=== PATIENT | female | born 1995 | race Caucasian/White ===

== ENCOUNTER 2023-04-10 10:20 | Inpatient (IN) ==
[2023-04-10] MEDS ORDERED: LIDOCAINE 1% LOCAL 20 ML VIAL INFIL PRN (22:29)
[2023-04-10] MEDS ORDERED: PENICILLIN G POTASSIUM 6 MU in DEXTROSE 5% 250 ML IV STA (22:29)
[2023-04-10] MEDS ORDERED: DINOPROSTONE 10 MG INSERT PV ONE (22:29)
[2023-04-10] MEDS ORDERED: OXYTOCIN 30 UNITS/500 ML BAG IV PRN (22:29)
--- NOTE | 2023-04-10 22:48 | History & Physical Report ---
Date of Service April 10, 2023 Assessment & Plan (1) Encounter for induction of labor: Present on Admission?: Yes (2) Hypertriglyceridemia: Present on Admission?: Yes (3) GBS (group B Streptococcus carrier), +RV culture, currently : Plan Admit to L and D Regular diet x 2 then NPO/IV fluids labs Cervidil placed for cervical effacement then consider Pitocin for augmentation of labor Pain meds including epidural as the pt desires Antibiotics for GBS treatment Admission and Anticipated Discharge Date Admission Date: April 10, 2023 History of Present Illness Chief Complaint: pt 27 yr old G1 IUP at 37 weeks 4 days for induction of labor for elevated triglycerides. Primary Care Provider: Maximus Sim MD Pt denies regular uterine contractions, vaginal bleeding, leaking of fluid per vagina etc. Reports good movement. Allergies Allergy/AdvReac Type Severity Reaction Status Date / Time Egg Derived Allergy Unknown ANAPHYLAXIS Verified 10/20/22 10:37 iodine Allergy Unknown HIVES AND Verified 10/20/22 10:37 RASH, TOPICAL FORM peanut Allergy Unknown ANAPHYLAXIS Verified 10/20/22 10:37 Home Medications Medication Instructions Recorded Confirmed Type Control 1 tab PO DAILY 10/20/22 10/20/22 History famotidine 20 mg tablet 20 mg PO HS 10/20/22 10/20/22 History montelukast 10 mg tablet 10 mg PO DAILY 10/20/22 10/20/22 History ondansetron 4 mg disintegrating 4 mg PO Q6H PRN nausea and 10/20/22 Rx tablet vomiting #12 tabs Past Med/Surg History Social History Smoking Status: Never smoker Feels Safe at Home: Yes Review of Systems Review of Systems: All systems reviewed & are unremarkable except as noted in HPI & below Constitutional: as per Subjective / HPI Genitourinary: as per Subjective / HPI Physical Exam Constitutional: WD/WN, vitals as above Respiratory: normal respiratory effort, lungs clear to auscultation Cardiovascular: RRR, no murmur, no edema Gastrointestinal (Abdomen): normal bowel sounds, soft, nontender, no hep atosplenomegaly Skin: no rashes, warm and dry Genitourinary: no vaginal lesions, no adnexal mass OB Exam Abdomen: + fundal height (38 cm), + heart tones (140s) and + vertex Manual OB Exam: + cervical dilation fingertip, + cervical effacement 50% and + station high OB Exam Monitor Tracing: + external FHT monitor used, + category I and + normal FHT variability Results & Data Results & Data Vital Signs (Past 12 Hours) Vital Signs Pulse BP 04/10/23 22:13 90 137/88 Medications Administered cervidil PV placed Code Status & VTE Plan VTE Prophylaxis Plan VTE Prophylaxis will be ordered: No Reason for no VTE drug order: Treatment not indicated Supervising Physician Co-Signing Physician Notes Dr. Robert Franz MD
[2023-04-10 23:52] LABS: Hemoglobin 10.5 g/dl (12.0-16.0); Mean Corpuscular Hemoglobin 31.8 pg (25.0-34.0); Mean Corpuscular Hgb Conc 37.5 g/dL (32.0-36.0); Mean Corpuscular Volume 84.8 fL (80.0-100.0); Mean Platelet Volume 11.1 fL (9.4-12.4); Platelet Count 260 K/uL (130-400); RDW Standard Deviation 52.7 fL (36.4-46.3)
[2023-04-11] MEDS: ACETAMINOPHEN 500 MG TAB PO PRN (07:26)
--- NOTE | 2023-04-11 11:17 | Labor Progress Brief Note ---
Date of Service April 11, 2023 Assessment & Plan Admission and Anticipated Discharge Date Admission Date: April 10, 2023 Physical Exam Genitourinary: Manual OB Exam: + cervical dilation fingertip, + cervical effacement 50% and + station high OB Exam Monitor Tracing: + external FHT monitor used, + external uterine monitor used, + category I and + normal FHT variability Cervidil pulled out Results & Data Vital Signs (Past 12 Hours) Vital Signs Temp Pulse Resp BP 04/10/23 23:42 36.7 C 04/11/23 11:09 93 H 116/74 04/11/23 07:29 20 04/11/23 07:29 36.6 C 04/11/23 07:28 78 118/65 04/11/23 03:17 73 116/61
[2023-04-11] MEDS: miSOPROStoL 50 MCG TAB PO SCH ×3 (14:58→23:47)
[2023-04-12] MEDS: miSOPROStoL 50 MCG TAB PO SCH ×2 (03:48→07:53)
[2023-04-12] MEDS: ACETAMINOPHEN 500 MG TAB PO PRN (05:06)
--- NOTE | 2023-04-12 07:34 | Labor Progress Brief Note ---
Date of Service April 12, 2023 Assessment & Plan Admission and Anticipated Discharge Date Admission Date: April 10, 2023 Physical Exam Genitourinary: Manual OB Exam: + cervical dilation 1 cm, + cervical effacement 60% and + station high OB Exam Monitor Tracing: + external FHT monitor used, + external uterine monitor used, + category I and + normal FHT variability Results & Data Vital Signs (Past 12 Hours) Vital Signs Temp Pulse Resp BP 04/12/23 07:12 71 121/70 04/12/23 03:00 18 04/12/23 03:00 36.7 C 18 04/12/23 03:03 77 131/73 04/11/23 23:55 18 04/11/23 23:55 36.6 C 18 04/11/23 23:54 72 114/77
[2023-04-12] MEDS ORDERED: miSOPROStoL 25 MCG TAB SL SCH (08:00)
[2023-04-12] MEDS: MONTELUKAST SODIUM 10 MG TABLET PO SCH ×2 (08:35→20:54)
[2023-04-12] MEDS: ALBUTEROL HFA 8 GM INHALER INH SCH ×2 (08:35→21:10)
[2023-04-12] MEDS: LACTATED RINGER'S 1,000 ML IV PRN ×3 (08:36→17:56)
--- NOTE | 2023-04-12 11:22 | Obstetrical Progress Note ---
Date of Service April 12, 2023 Assessment & Plan (1) 37 weeks gestation of : Plan: Patient has received Cervidil, Cytotec p.o. then sublingual Plan to start oxytocin 4 hours after last dose of misoprostol at 1 PM AROM Epidural with patient request Anticipate spontaneous vaginal delivery (2) Hypertriglyceridemia: Plan: Continue to monitor, as patient is increased risk of acute pancreatitis up to 20% (3) GBS (group B Streptococcus carrier), +RV culture, currently : Plan: Currently receiving her first dose of penicillin G at this time Admission and Anticipated Discharge Date Admission Date: April 10, 2023 Subjective Patient doing well in bed at this time, has been able around. States contractions are somewhat uncomfortable, but not severe pain. Otherwise feeling well Physical Exam Genitourinary: heart tracing: Baseline 130, moderate variability, positive accelerations, no decelerations, currently category 1 tracing Tocometer: Contractions every 5 to 7 minutes Cervix: 2/50/-3 Cephalic, Pierre's 3400 Results & Data Vital Signs (Past 12 Hours) Vital Signs Temp Pulse Resp BP 04/12/23 07:59 36.6 C 20 04/12/23 11:02 84 118/83 04/12/23 10:02 18 04/12/23 10:02 18 04/12/23 09:30 18 04/12/23 09:30 18 04/12/23 09:00 20 04/12/23 09:00 20 04/12/23 08:30 18 04/12/23 08:30 18 04/12/23 08:00 18 04/12/23 08:00 18 04/12/23 07:30 18 04/12/23 07:30 18 04/12/23 07:12 71 121/70 04/12/23 03:00 18 04/12/23 03:00 36.7 C 18 04/12/23 03:03 77 131/73 04/11/23 23:55 18 04/11/23 23:55 36.6 C 18 04/11/23 23:54 72 114/77
[2023-04-12] MEDS ORDERED: OXYTOCIN 30 UNITS/500 ML BAG IV PRN (13:00)
[2023-04-12] MEDS: PENICILLIN G POTASSIUM 3 MU in DEXTROSE 5% 100 ML IV PRN ×3 (13:52→22:23)
[2023-04-12] MEDS ORDERED: SODIUM CHLORIDE 0.9% PF INJ 10 ML VIAL ONE ×2 (17:32→19:57)
[2023-04-12] MEDS ORDERED: ePHEDrine sulfate 50 MG/ML AMP ONE ×2 (17:32→19:57)
[2023-04-12] MEDS ORDERED: fentaNYL citrate PF 100 MCG/2 ML VIAL ONE ×2 (17:32→19:56)
[2023-04-12] MEDS ORDERED: LIDOCAINE 2%/EPINEPHRINE 1:200,000 20 ML PF ONE ×2 (17:33→19:57)
[2023-04-12] MEDS ORDERED: BUPIVACAINE 0.25% PF 30 ML VIAL ONE ×2 (17:33→19:57)
[2023-04-12] MEDS ORDERED: fentaNYL 2MCG/ML ROPIVACAINE 1.25MG/ML 100 ML BAG EPI ONE (17:33)
--- NOTE | 2023-04-12 17:33 | Obstetrical Progress Note ---
Date of Service April 12, 2023 Assessment & Plan (1) 37 weeks gestation of : Plan: Continue oxytocin for augmentation Epidural with patient request Anticipate spontaneous vaginal delivery (2) Hypertriglyceridemia: Plan: Continue to monitor, as patient is increased risk of acute pancreatitis up to 20% (3) GBS (group B Streptococcus carrier), +RV culture, currently : Plan: Currently receiving her first dose of penicillin G at this time Admission and Anticipated Discharge Date Admission Date: April 10, 2023 Subjective Patient getting more uncomfortable with contractions Physical Exam Genitourinary: heart tracing: Baseline 130, moderate variability, positive accelerations no decelerations, category 1 tracing Tocometer: Contractions every 3 minutes, oxytocin currently at 10 milliunits/h Cervix: 2-3/50/-3, AROM performed with clear fluid, IUPC was placed, no cord felt, no complications Results & Data Vital Signs (Past 12 Hours) Vital Signs Temp Pulse Resp BP Pulse Ox 04/12/23 07:59 36.6 C 04/12/23 17:27 86 97 04/12/23 17:10 20 04/12/23 17:10 20 04/12/23 17:22 84 98 04/12/23 17:17 88 98 04/12/23 17:15 85 142/80 H 04/12/23 15:30 20 04/12/23 15:30 04/12/23 16:00 04/12/23 16:00 04/12/23 15:34 80 120/69 04/12/23 15:00 04/12/23 15:00 04/12/23 13:00 18 04/12/23 13:00 04/12/23 13:29 18 04/12/23 13:29 18 04/12/23 14:00 18 04/12/23 14:00 04/12/23 14:30 86 122/73 04/12/23 13:35 95 H 130/74 04/12/23 11:21 20 04/12/23 11:21 04/12/23 11:02 84 118/83 04/12/23 10:02 18 04/12/23 10:02 18 04/12/23 09:30 18 04/12/23 09:30 18 04/12/23 09:00 04/12/23 09:00 20 04/12/23 08:30 18 04/12/23 08:30 18 04/12/23 08:00 18 04/12/23 08:00 18 04/12/23 07:30 18 04/12/23 07:30 18 04/12/23 07:12 71 121/70
[2023-04-12] MEDS ORDERED: BUPIVACAINE 0.25% PF 30 ML VIAL EPI STA (18:04)
[2023-04-12] MEDS ORDERED: fentaNYL citrate PF 100 MCG/2 ML VIAL EPI PRN (18:04)
[2023-04-12] MEDS ORDERED: fentaNYL citrate PF 100 MCG/2 ML VIAL EPI STA (18:04)
[2023-04-12] MEDS ORDERED: SODIUM CHLORIDE 0.9% PF INJ 10 ML VIAL EPI STA (18:04)
[2023-04-12] MEDS ORDERED: NALBUPHINE HCL INJ 10 MG/ML AMP IV PRN (18:04)
[2023-04-12] MEDS ORDERED: ROPIVACAINE 0.5% PF 5 MG/ML 20 ML VIAL EPI PRN (18:04)
[2023-04-12] MEDS ORDERED: NALOXONE HCL 1 MG in SODIUM CHLORIDE 0.9% 1000ML 1,000 ML IV PRN (18:04)
[2023-04-12] MEDS ORDERED: SODIUM CHLORIDE 0.9% PF INJ 10 ML VIAL EPI PRN (18:04)
[2023-04-12] MEDS ORDERED: ePHEDrine sulfate 50 MG/ML AMP IV PRN (18:04)
[2023-04-12] MEDS ORDERED: NALOXONE HCL 0.4 MG/1 ML VIAL/CARP IV PRN (18:04)
[2023-04-12] MEDS ORDERED: diphenhydrAMINE 50 MG/ML VIAL IV PRN (18:04)
[2023-04-12] MEDS ORDERED: LIDOCAINE 2% MPF LOCAL 5 ML VIAL EPI PRN (18:04)
[2023-04-12] MEDS ORDERED: BUPIVACAINE 0.25% PF 30 ML VIAL EPI PRN (18:04)
[2023-04-12] MEDS ORDERED: LIDOCAINE 2%/EPINEPHRINE 1:200,000 20 ML PF EPI STA (18:04)
--- NOTE | 2023-04-12 18:10 | Anesthesiology Consultation ---
Date of Service April 12, 2023 Assessment & Plan Chart Review Chart Review: Acceptable Risk for Labor Epidural Consults Requested none ASA ASA2 Proposed Anesthesia Anesthesia Type: Labor Epidural Risk / Benefits Reviewed With: PT / POA / Parent / Guardian, Accepts Plan and Informed Consent Obtained History Height/Weight Height: 5 ft 4 in Weight: 91.172 kg Allergies Allergy/AdvReac Type Severity Reaction Status Date / Time Egg Derived Allergy Unknown ANAPHYLAXIS Verified 10/20/22 10:37 iodine Allergy Unknown HIVES AND Verified 10/20/22 10:37 RASH, TOPICAL FORM peanut Allergy Unknown ANAPHYLAXIS Verified 10/20/22 10:37 Medications Home Medications Medication Instructions Recorded Confirmed Last Taken famotidine 20 mg tablet 20 mg PO HS 10/20/22 04/11/23 04/10/23 20:00 montelukast 10 mg tablet 10 mg PO DAILY 10/20/22 04/11/23 04/10/23 08:00 Vitamin 1 tab PO DAILY 04/11/23 04/11/23 Unknown Probiotic Acidophilus 1 tab PO DAILY 04/11/23 04/11/23 Unknown albuterol sulfate 90 mcg/actuation 1 puff inhalation BID 04/11/23 04/11/23 Unknown aerosol inhaler valacyclovir 500 mg tablet 500 mg PO BID 04/11/23 04/11/23 Unknown (Valtrex) Active Medications Generic Name Dose Route Start Last Admin Trade Name Freq PRN Reason Stop Dose Admin Acetaminophen 1,000 mg 04/11/23 06:29 04/12/23 05:06 Acetaminophen 500 Mg Tab PO 05/11/23 06:28 1,000 mg Q8H PRN Administration Pain or Fever Albuterol 1 puffs 04/12/23 09:00 04/12/23 08:35 Albuterol Hfa 8 Gm Inhaler INH 05/12/23 08:59 Not Given BIDR BOY Lactated Ringer's 1,000 mls @ 125 mls/hr 04/10/23 22:29 04/12/23 17:56 Lr IV 04/12/23 22:28 125 mls/hr .Q8H PRN Administration L&D Protocol Protocol Penicillin G Potassium 3 mu/ 106 mls @ 100 mls/hr 04/11/23 01:30 04/12/23 17:55 Dextrose IV 04/21/23 01:29 100 mls/hr Q4H PRN Administration GBS(+) Until Delivery Oxytocin 30 units in 500 mls @ 10 mls/hr 04/12/23 13:00 04/12/23 16:00 Pitocin IV 04/14/23 12:59 0.6 units/hr .Q24H PRN 10 mls/hr Labor Induction/Augmentation Titration Protocol 0.6 UNITS/HR Montelukast Sodium 10 mg 04/12/23 09:00 04/12/23 08:35 Montelukast Sodium 10 Mg Tablet PO 05/12/23 08:59 Not Given DAILY BOY Exercise / Class Metabolic Activity II 4-5 Yardwork/Stairs/Walk up hill Past Anesthesia History No Hx of Anesthesia Complications and No Family Hx of Anesthesia Complications History of PONV No Hx of PONV and No Hx of Motion Sickness Social History Smoking Status: Never smoker Do You Dip or Chew Tobacco: No Hx Alcohol Use: No Hx Substance Use: No substance use type: does not use Physical Exam Vital Signs Last Vital Signs Temp 97.9 F 04/12/23 07:59 Pulse 99 H 04/12/23 18:02 Resp 20 04/12/23 17:10 BP 142/80 H 04/12/23 17:15 Pulse Ox 98 04/12/23 18:02 ENMT Mouth: no dentition abnormality Thyromental Distance: > or= 3.5 Finger Breadths Mallampati Class: II Neck normal visual inspection Respiratory normal respiratory effort Auscultation: lungs clear to auscultation bilaterally Cardiovascular Rate/Rhythm: regular rate and regular rhythm Testing Laboratory Results 04/10/23 22:53
[2023-04-12] MEDS: ONDANSETRON INJ 2 MG/ML 2 ML VIAL IV PRN (19:32)
[2023-04-12] MEDS ORDERED: NURSING L&D Epidural Breakthrough Pain Update ONE (19:37)
[2023-04-12 20:38] LABS: Basophils # (auto) 0.04 K/uL (0-0.2); Basophils % (auto) 0.3 %; Eosinophils # (auto) 0.11 K/uL (0-0.50); Eosinophils % (auto) 0.9 %; Hematocrit (blood only) 33.3 % (37.0-47.0); Hemoglobin 12.3 g/dl (12.0-16.0); Immature Granulocytes # (auto) 0.11 K/uL (0.01-0.20); Immature Granulocytes % (auto) 0.9 %; Lymphocytes # (auto) 1.78 K/uL (1.2-3.4); Lymphocytes % (auto) 14.1 %; Mean Corpuscular Hemoglobin 31.2 pg (25.0-34.0); Mean Corpuscular Hgb Conc 36.9 g/dL (32.0-36.0); Mean Corpuscular Volume 84.5 fL (80.0-100.0); Mean Platelet Volume 10.3 fL (9.4-12.4); Monocytes # (auto) 0.61 K/uL (0.11-0.59); Monocytes % (auto) 4.8 %; Neutrophils # (auto) 9.99 K/uL (1.40-6.50); Platelet Count 202 K/uL (130-400); RDW Coefficient of Variation 16.7 % (11.5-14.5); RDW Standard Deviation 51.8 fL (36.4-46.3); Red Blood Count 3.94 M/uL (4.20-5.40); White Blood Count 12.64 K/ul (4.8-10.8)
--- NOTE | 2023-04-12 20:41 | Communication Note ---
Date of Service: April 12, 2023 pt was c/o 10/10 pain on right side. pt is numb on left side. catheter only has ~4cm in epidural space. i decided to replace the epidural instead of a red ose. pt is only 2.5 cm. Pt identified. landmarks for l3-l4. sterile prep/drape/mask/gloves. 1% lido infiltrated. 17 gauge touey advanced to lionel with air @ 6cm. easy catheter threat to 11 cm. 2% jennifer with epi 4cc test dose. negative IV/IT. catheter secured. pt bolused with 100 mcg fentanyl and 4cc of 0.25% bupivacaine. pt vss/ see nursing record. pt reports improvement of her pain. pt satisfied with care. no complications at this time. setting were changed on epidural pump by me.
[2023-04-12] MEDS: FAMOTIDINE 20 MG TAB PO SCH (21:10)
[2023-04-12 21:23] LABS: Albumin Level 3.7 gm/dl (3.4-5.0); Anion Gap 11 (3-11); Bilirubin,Total 0.5 mg/dl (0.2-1.0); Calcium 9.1 mg/dl (8.6-10.3); Carbon Dioxide 19 mmol/L (21-32); Chloride 104 mmol/L (98-107); Sodium 134 mmol/L (136-145)
[2023-04-12 21:28] LABS: Alanine Aminotransferase 17 U/L (7-52); Albumin Globulin Ratio 1.1 (0.9-2); Alkaline Phosphatase 104 U/L (34-104); BUN Creatinine Ratio 12.8 (10-20); Blood Urea Nitrogen 6 mg/dl (6-23); Creatinine Clr Calc Pharmacy 193.2 ml/min; Est GFR (African American) > 150.0 ml/min; Est GFR (Non-African American) 133.5 ml/min; Globulin 3.3 gm/dl (2.5-4.0); Glucose 87 mg/dl (70-99(Fasting))
[2023-04-12 22:18] LABS: Total Protein Urine Random 7.3 mg/dl (0-11.9)
[2023-04-12 22:24] LABS: Creatinine Urine Random 47.4 mg/dl; Protein Creatinine Ratio Urine 0.2 (0-0.2)
[2023-04-13] MEDS ORDERED: fentaNYL 2MCG/ML ROPIVACAINE 1.25MG/ML 100 ML BAG EPI ONE (01:22)
[2023-04-13] MEDS: PENICILLIN G POTASSIUM 3 MU in DEXTROSE 5% 100 ML IV PRN ×3 (02:40→11:22)
[2023-04-13 03:03] LABS: Appearance Urine Turbid (Clear); Bacteria Urine Automated Negative (Negative); Bilirubin Urine Negative (Negative); Blood Urine 3+ (Negative); Color Urine Orange; Glucose Urine UA Negative (Negative); Ketones Urine Negative (Negative); Leukocyte Esterase Urine Trace (Negative); Nitrite Urine Negative (Negative); Protein Urine 2+ (Negative); RBC Urine Automated >30 /hpf (0-4); Specific Gravity Urine 1.007 (1.000-1.030); Urobilinogen Urine Negative (Negative); WBC Urine Automated >30 /hpf (0-5)
[2023-04-13] MEDS: fentaNYL 2MCG/ML ROPIVACAINE 1.25MG/ML 100 ML BAG EPI PRN ×2 (06:13→11:26)
--- NOTE | 2023-04-13 06:15 | Obstetrical Progress Note ---
Date of Service April 13, 2023 Assessment & Plan (1) 37 weeks gestation of : Plan: Discussed cervical change with patient, she desires to continue to proceed with induction If patient fails to change her cervix with adequate contractions after 4 hours, will be failure to progress, and that time we will proceed with Anticipate spontaneous vaginal delivery (2) Hypertriglyceridemia: Plan: Continue to monitor, as patient is increased risk of acute pancreatitis up to 20% (3) GBS (group B Streptococcus carrier), +RV culture, currently : Plan: Currently receiving her first dose of penicillin G at this time Admission and Anticipated Discharge Date Admission Date: April 10, 2023 Subjective Patient now more comfortable on epidural, as it was replaced. And she was able to get some sleep. Previously over the night she was uncomfortable and asking for a . She feels much better now Physical Exam Genitourinary: heart tracing: Baseline 130, moderate variability, positive accelerations, occasional variable decelerations, occasional blades Tocometer: Contractions every 3 to 4 minutes, pit at 20 milliunits/h Cervix: 6/50/-2, significant caput Results & Data Vital Signs (Past 12 Hours) Vital Signs Temp Pulse Resp BP Pulse Ox 04/13/23 06:10 76 121/66 04/13/23 06:07 85 97 04/13/23 06:02 78 96 04/13/23 05:57 93 H 98 04/13/23 05:55 90 121/67 04/13/23 05:52 86 97 04/13/23 05:47 93 H 98 04/13/23 05:42 85 97 04/13/23 05:39 75 126/63 04/13/23 05:37 76 96 04/13/23 05:30 16 04/13/23 05:30 16 04/13/23 05:32 82 96 04/13/23 05:27 77 96 04/13/23 05:24 75 116/59 L 04/13/23 05:22 77 96 04/13/23 05:17 76 96 04/13/23 05:12 36.9 C 74 96 04/13/23 05:09 77 115/60 04/13/23 05:07 79 95 04/13/23 05:00 18 04/13/23 05:00 18 04/13/23 05:02 77 96 04/13/23 04:57 81 96 04/13/23 04:55 71 124/65 04/13/23 04:52 71 96 04/13/23 04:47 79 96 04/13/23 04:42 78 95 04/13/23 04:40 70 119/57 L 04/13/23 04:37 75 95 04/13/23 04:30 16 04/13/23 04:30 16 04/13/23 04:32 71 96 04/13/23 04:27 84 97 04/13/23 04:24 81 124/66 04/13/23 04:22 81 97 04/13/23 04:17 88 96 04/13/23 04:12 84 96 04/13/23 04:10 76 120/57 L 04/13/23 04:07 74 95 04/13/23 04:02 76 95 04/13/23 03:57 74 95 04/13/23 03:54 74 114/57 L 04/13/23 03:52 77 95 04/13/23 03:47 82 96 04/13/23 03:42 82 96 04/13/23 03:39 76 111/59 L 04/13/23 03:37 82 95 04/13/23 03:32 77 95 04/13/23 03:27 79 95 04/13/23 03:24 72 113/58 L 04/13/23 03:22 75 95 04/13/23 03:17 79 95 04/13/23 03:12 83 96 04/13/23 03:10 77 117/61 04/13/23 03:07 82 96 04/13/23 03:02 76 96 04/13/23 03:00 18 04/13/23 03:00 36.9 C 18 04/13/23 02:30 18 04/13/23 02:30 18 04/13/23 02:57 85 96 04/13/23 02:56 83 119/56 L 04/13/23 02:52 92 H 96 04/13/23 02:47 95 H 96 04/13/23 02:42 94 H 97 04/13/23 02:40 101 H 144/92 H 04/13/23 02:37 93 H 97 04/13/23 02:32 90 96 04/13/23 02:27 100 H 97 04/13/23 02:25 102 H 136/100 04/13/23 02:22 88 96 04/13/23 02:17 97 H 96 04/13/23 02:00 18 04/13/23 02:00 18 04/13/23 02:12 85 96 04/13/23 02:09 83 131/78 04/13/23 02:07 91 H 96 04/13/23 02:02 87 97 04/13/23 01:57 96 H 97 04/13/23 01:55 85 130/75 04/13/23 01:52 85 97 04/13/23 01:47 93 H 97 04/13/23 01:42 92 H 97 04/13/23 01:39 86 116/69 04/13/23 01:37 87 97 04/13/23 01:30 18 04/13/23 01:30 18 04/13/23 01:32 90 96 04/13/23 01:27 85 96 04/13/23 01:24 88 126/76 04/13/23 01:22 93 H 96 04/13/23 01:17 80 97 04/13/23 01:12 84 95 04/13/23 01:09 88 126/73 04/13/23 01:07 96 H 96 04/13/23 01:02 91 H 97 04/13/23 01:00 18 04/13/23 01:00 37.0 C 18 04/13/23 00:58 91 H 93 04/13/23 00:57 86 95 04/13/23 00:54 107 H 121/70 04/13/23 00:52 100 H 95 04/13/23 00:47 93 H 95 04/13/23 00:46 81 94 04/13/23 00:42 81 95 04/13/23 00:40 83 94 04/13/23 00:39 85 114/65 04/13/23 00:37 78 95 04/13/23 00:30 18 04/13/23 00:30 37.1 C 18 04/13/23 00:32 85 94 04/13/23 00:33 83 94 04/13/23 00:27 85 94 04/13/23 00:24 83 118/67 04/13/23 00:22 87 96 04/13/23 00:19 85 94 07/23/23 00:17 86 95 04/13/23 00:12 85 96 04/13/23 00:11 85 94 04/13/23 00:09 93 H 123/68 04/13/23 00:07 84 96 04/13/23 00:02 82 95 04/12/23 23:57 94 H 97 04/12/23 23:54 86 117/71 04/12/23 23:52 79 95 04/12/23 23:47 92 H 96 04/12/23 23:42 99 H 96 04/12/23 23:39 84 118/69 04/12/23 23:37 91 H 97 04/12/23 23:30 18 04/12/23 23:30 18 04/12/23 23:32 90 97 04/12/23 23:27 85 98 04/12/23 23:25 93 H 115/69 04/12/23 23:22 85 97 04/12/23 23:17 100 H 98 04/12/23 23:12 89 97 04/12/23 23:09 78 108/55 L 04/12/23 23:07 74 96 04/12/23 23:00 18 04/12/23 23:00 18 04/12/23 23:02 76 96 04/12/23 23:00 18 04/12/23 23:00 18 04/12/23 22:57 76 96 04/12/23 22:54 75 110/59 L 04/12/23 22:52 80 96 04/12/23 22:47 79 95 04/12/23 22:42 74 96 04/12/23 22:39 82 111/59 L 04/12/23 22:37 82 97 04/12/23 22:32 77 96 04/12/23 22:30 18 04/12/23 22:30 37.1 C 18 04/12/23 22:27 82 97 04/12/23 22:24 75 106/61 04/12/23 22:22 83 98 04/12/23 22:20 99 H 91 04/12/23 22:17 73 95 04/12/23 22:12 76 96 04/12/23 22:09 75 108/60 04/12/23 22:07 75 96 04/12/23 22:00 16 04/12/23 22:00 16 04/12/23 22:02 82 96 04/12/23 21:57 88 97 04/12/23 21:54 85 116/65 04/12/23 21:52 79 97 04/12/23 21:47 87 99 04/12/23 21:42 84 98 04/12/23 21:40 76 116/63 04/12/23 21:30 18 04/12/23 21:30 18 04/12/23 21:37 81 98 04/12/23 21:32 90 98 04/12/23 21:27 86 100 04/12/23 21:25 120 H 132/82 04/12/23 21:22 88 99 04/12/23 21:17 82 97 04/12/23 21:12 86 99 04/12/23 21:10 85 127/76 04/12/23 21:00 18 04/12/23 21:00 36.9 C 18 04/12/23 21:07 90 99 04/12/23 20:30 18 04/12/23 20:30 18 04/12/23 20:35 18 04/12/23 20:35 18 04/12/23 20:40 18 04/12/23 20:40 18 04/12/23 20:16 20 04/12/23 20:16 20 04/12/23 21:02 81 98 04/12/23 20:57 86 97 04/12/23 20:55 97 H 92 04/12/23 20:54 82 117/60 04/12/23 20:52 88 97 04/12/23 20:51 86 127/66 04/12/23 20:48 81 125/65 04/12/23 20:47 100 H 97 04/12/23 20:45 91 H 18 130/81 04/12/23 20:42 86 127/73 97 04/12/23 20:39 88 128/73 04/12/23 20:37 92 H 96 04/12/23 20:36 86 128/69 04/12/23 20:33 83 128/66 04/12/23 20:32 87 148/85 H 97 04/12/23 20:27 87 96 04/12/23 20:22 107 H 97 04/12/23 20:17 92 H 99 04/12/23 20:15 82 94 04/12/23 20:12 93 H 94 04/12/23 20:07 79 99 04/12/23 20:02 94 H 98 04/12/23 20:00 126 H 18 146/76 H 04/12/23 19:57 93 H 95 04/12/23 19:55 90 94 04/12/23 19:52 88 97 04/12/23 19:47 96 H 98 04/12/23 19:42 91 H 98 04/12/23 19:37 88 94 04/12/23 19:38 85 94 04/12/23 19:30 18 04/12/23 19:30 18 04/12/23 19:32 93 H 98 04/12/23 19:28 96 H 144/88 H 04/12/23 19:27 95 H 98 04/12/23 19:22 86 97 04/12/23 19:17 81 96 04/12/23 19:13 76 135/78 04/12/23 19:12 87 97 04/12/23 19:07 83 97 04/12/23 18:45 20 04/12/23 18:45 20 04/12/23 19:02 37.1 C 78 18 97 04/12/23 18:59 76 139/78 04/12/23 18:57 97 04/12/23 18:57 85 04/12/23 18:57 84 134/85 04/12/23 18:54 83 130/79 04/12/23 18:53 77 128/78 04/12/23 18:52 78 97 04/12/23 18:51 76 131/89 04/12/23 18:49 81 133/82 04/12/23 18:47 96 04/12/23 18:47 74 04/12/23 18:47 80 135/101 H 04/12/23 18:45 81 20 133/74 04/12/23 18:42 85 97 04/12/23 18:43 88 125/73 04/12/23 18:41 86 134/77 04/12/23 18:38 83 134/79 04/12/23 18:37 85 97 04/12/23 18:36 79 135/81 04/12/23 18:34 86 137/76 04/12/23 18:32 85 133/80 96 04/12/23 18:30 83 141/80 H 04/12/23 18:29 81 139/78 04/12/23 18:27 97 04/12/23 18:27 88 04/12/23 18:27 88 142/81 H 04/12/23 18:24 79 146/90 H 04/12/23 18:22 86 138/84 97 04/12/23 18:20 80 137/80 04/12/23 18:17 80 98
[2023-04-13] MEDS: ACETAMINOPHEN 500 MG TAB PO PRN (06:21)
[2023-04-13] MEDS: ALBUTEROL HFA 8 GM INHALER INH SCH ×2 (07:57→19:21)
[2023-04-13] MEDS: LACTATED RINGER'S 1,000 ML IV PRN (08:43)
--- NOTE | 2023-04-13 10:11 | Obstetrical Progress Note ---
Date of Service April 13, 2023 Assessment & Plan (1) 37 weeks gestation of : Plan: Has not had any cervical change for last 2 hours, plan to recheck in 2 hours If patient fails to change her cervix with adequate contractions after 4 hours, will be failure to progress, and that time we will proceed with (2) Hypertriglyceridemia: Plan: Continue to monitor, as patient is increased risk of acute pancreatitis up to 20% (3) GBS (group B Streptococcus carrier), +RV culture, currently : Plan: Currently receiving her first dose of penicillin G at this time Admission and Anticipated Discharge Date Admission Date: April 10, 2023 Subjective Patient comfortable on epidural at this time, has been nauseous Physical Exam Genitourinary: heart tracing: Baseline 130, moderate variability, positive accelerations, no decelerations, category 1 tracing Tocometer: Contractions every 2 to 4 minutes, pit at 20 milliunits/h Cervix: 8/100/-1, significant caput Results & Data Vital Signs (Past 12 Hours) Vital Signs Temp Pulse Resp BP Pulse Ox 04/13/23 10:07 92 H 98 04/13/23 10:02 119 H 97 04/13/23 09:57 107 H 97 04/13/23 09:52 95 H 97 04/13/23 09:47 103 H 97 04/13/23 09:42 92 H 97 04/13/23 09:39 88 137/77 04/13/23 09:37 89 97 04/13/23 09:32 87 97 04/13/23 09:27 90 97 04/13/23 09:25 36.8 C 84 136/75 04/13/23 09:22 93 H 97 04/13/23 09:17 93 H 99 04/13/23 09:12 86 97 04/13/23 09:09 77 142/82 H 04/13/23 09:07 82 96 04/13/23 09:02 86 96 04/13/23 08:57 81 95 04/13/23 08:55 76 134/78 04/13/23 08:52 82 96 04/13/23 08:47 83 96 04/13/23 08:42 87 96 04/13/23 08:39 80 134/81 04/13/23 08:37 77 96 04/13/23 08:32 86 96 04/13/23 08:27 80 97 04/13/23 08:24 85 136/80 04/13/23 08:22 83 97 04/13/23 08:17 91 H 97 04/13/23 08:12 84 97 04/13/23 08:10 85 136/74 04/13/23 08:07 85 97 04/13/23 08:02 95 H 98 04/13/23 07:57 85 97 04/13/23 07:54 91 H 127/76 04/13/23 07:52 99 H 97 04/13/23 07:47 98 H 99 04/13/23 07:42 88 97 04/13/23 07:39 36.8 C 93 H 121/72 04/13/23 07:37 100 H 98 04/13/23 07:32 96 H 97 04/13/23 07:27 85 95 04/13/23 07:24 78 114/64 04/13/23 07:22 79 96 04/13/23 07:17 92 H 97 04/13/23 07:12 74 96 04/13/23 07:09 74 114/62 04/13/23 07:07 87 96 04/13/23 07:02 67 95 04/13/23 06:57 69 95 04/13/23 06:54 75 115/64 04/13/23 06:52 75 95 04/13/23 06:47 74 95 04/13/23 06:42 75 96 04/13/23 06:40 70 113/60 04/13/23 06:37 73 96 04/13/23 06:30 18 04/13/23 06:30 18 04/13/23 06:32 85 97 04/13/23 06:27 74 96 04/13/23 06:24 77 121/69 04/13/23 06:22 107 H 97 04/13/23 06:17 85 97 04/13/23 06:12 78 96 04/13/23 06:10 76 121/66 04/13/23 06:07 85 97 04/13/23 06:02 78 96 04/13/23 05:57 93 H 98 04/13/23 05:55 90 121/67 04/13/23 05:52 86 97 04/13/23 05:47 93 H 98 04/13/23 05:42 85 97 07/23/23 05:39 75 126/63 04/13/23 05:37 76 96 04/13/23 05:30 16 04/13/23 05:30 16 04/13/23 05:32 82 96 04/13/23 05:27 77 96 04/13/23 05:24 75 116/59 L 04/13/23 05:22 77 96 04/13/23 05:17 76 96 04/13/23 05:12 36.9 C 74 96 04/13/23 05:09 77 115/60 04/13/23 05:07 79 95 04/13/23 05:00 18 04/13/23 05:00 18 04/13/23 05:02 77 96 04/13/23 04:57 81 96 04/13/23 04:55 71 124/65 04/13/23 04:52 71 96 04/13/23 04:47 79 96 04/13/23 04:42 78 95 04/13/23 04:40 70 119/57 L 04/13/23 04:37 75 95 04/13/23 04:30 16 04/13/23 04:30 16 04/13/23 04:32 71 96 04/13/23 04:27 84 97 04/13/23 04:24 81 124/66 04/13/23 04:22 81 97 04/13/23 04:17 88 96 04/13/23 04:12 84 96 04/13/23 04:10 76 120/57 L 04/13/23 04:07 74 95 04/13/23 04:02 76 95 04/13/23 03:57 74 95 04/13/23 03:54 74 114/57 L 04/13/23 03:52 77 95 04/13/23 03:47 82 96 04/13/23 03:42 82 96 04/13/23 03:39 76 111/59 L 04/13/23 03:37 82 95 04/13/23 03:32 77 95 04/13/23 03:27 79 95 04/13/23 03:24 72 113/58 L 04/13/23 03:22 75 95 04/13/23 03:17 79 95 04/13/23 03:12 83 96 04/13/23 03:10 77 117/61 04/13/23 03:07 82 96 04/13/23 03:02 76 96 04/13/23 03:00 18 04/13/23 03:00 36.9 C 18 04/13/23 02:30 18 04/13/23 02:30 18 04/13/23 02:57 85 96 04/13/23 02:56 83 119/56 L 04/13/23 02:52 92 H 96 04/13/23 02:47 95 H 96 04/13/23 02:42 94 H 97 04/13/23 02:40 101 H 144/92 H 04/13/23 02:37 93 H 97 04/13/23 02:32 90 96 04/13/23 02:27 100 H 97 04/13/23 02:25 102 H 136/100 04/13/23 02:22 88 96 04/13/23 02:17 97 H 96 04/13/23 02:00 18 04/13/23 02:00 18 04/13/23 02:12 85 96 04/13/23 02:09 83 131/78 04/13/23 02:07 91 H 96 04/13/23 02:02 87 97 04/13/23 01:57 96 H 97 04/13/23 01:55 85 130/75 04/13/23 01:52 85 97 04/13/23 01:47 93 H 97 04/13/23 01:42 92 H 97 04/13/23 01:39 86 116/69 04/13/23 01:37 87 97 04/13/23 01:30 18 04/13/23 01:30 18 04/13/23 01:32 90 96 04/13/23 01:27 85 96 04/13/23 01:24 88 126/76 04/13/23 01:22 93 H 96 04/13/23 01:17 80 97 04/13/23 01:12 84 95 04/13/23 01:09 88 126/73 04/13/23 01:07 96 H 96 04/13/23 01:02 91 H 97 04/13/23 01:00 18 04/13/23 01:00 37.0 C 18 04/13/23 00:58 91 H 93 04/13/23 00:57 86 95 04/13/23 00:54 107 H 121/70 04/13/23 00:52 100 H 95 04/13/23 00:47 93 H 95 04/13/23 00:46 81 94 04/13/23 00:42 81 95 04/13/23 00:40 83 94 04/13/23 00:39 85 114/65 04/13/23 00:37 78 95 04/13/23 00:30 18 04/13/23 00:30 37.1 C 18 04/13/23 00:32 85 94 04/13/23 00:33 83 94 04/13/23 00:27 85 94 04/13/23 00:24 83 118/67 04/13/23 00:22 87 96 04/13/23 00:19 85 94 04/13/23 00:17 86 95 04/13/23 00:12 85 96 04/13/23 00:11 85 94 04/13/23 00:09 93 H 123/68 04/13/23 00:07 84 96 04/13/23 00:02 82 95 04/12/23 23:57 94 H 97 04/12/23 23:54 86 117/71 04/12/23 23:52 79 95 04/12/23 23:47 92 H 96 04/12/23 23:42 99 H 96 04/12/23 23:39 84 118/69 04/12/23 23:37 91 H 97 04/12/23 23:30 18 04/12/23 23:30 18 04/12/23 23:32 90 97 04/12/23 23:27 85 98 04/12/23 23:25 93 H 115/69 04/12/23 23:22 85 97 04/12/23 23:17 100 H 98 04/12/23 23:12 89 97 04/12/23 23:09 78 108/55 L 04/12/23 23:07 74 96 04/12/23 23:00 18 04/12/23 23:00 18 04/12/23 23:02 76 96 04/12/23 23:00 18 04/12/23 23:00 18 04/12/23 22:57 76 96 04/12/23 22:54 75 110/59 L 04/12/23 22:52 80 96 04/12/23 22:47 79 95 04/12/23 22:42 74 96 04/12/23 22:39 82 111/59 L 04/12/23 22:37 82 97 04/12/23 22:32 77 96 04/12/23 22:30 18 04/12/23 22:30 37.1 C 18 04/12/23 22:27 82 97 04/12/23 22:24 75 106/61 04/12/23 22:22 83 98 04/12/23 22:20 99 H 91 04/12/23 22:17 73 95 04/12/23 22:12 76 96
[2023-04-13] MEDS: ONDANSETRON INJ 2 MG/ML 2 ML VIAL IV PRN (10:15)
[2023-04-13] MEDS ORDERED: AZITHROMYCIN 500 MG in DEXTROSE 5% 250 ML IV STA (12:05)
--- NOTE | 2023-04-13 12:05 | Obstetrical Progress Note ---
Date of Service April 13, 2023 Assessment & Plan (1) 37 weeks gestation of : Plan: No cervical change for 4 hours, FTP Stop pit Cat II tracing C section recommended Consents signed at bedside 2g ancef, 500mg azithro (2) Hypertriglyceridemia: Plan: Continue to monitor, as patient is increased risk of acute pancreatitis up to 20% (3) GBS (group B Streptococcus carrier), +RV culture, currently : Plan: Currently receiving her first dose of penicillin G at this time Admission and Anticipated Discharge Date Admission Date: April 10, 2023 Subjective More pressure, feels urge to push Physical Exam Genitourinary: FHT: baseline 130, mod variability, no accels, recurrent lates, cat II [place]: q2-3 min pit at 22 Cx: 8/50/-2, caput to -1 Results & Data Vital Signs (Past 12 Hours) Vital Signs Temp Pulse Resp BP Pulse Ox 04/13/23 11:57 92 H 97 04/13/23 11:52 104 H 98 04/13/23 11:47 93 H 97 04/13/23 11:42 86 96 04/13/23 11:39 80 124/68 04/13/23 11:37 85 96 04/13/23 11:32 97 H 96 04/13/23 11:27 82 95 04/13/23 11:25 83 138/75 04/13/23 11:22 89 95 04/13/23 11:17 104 H 96 04/13/23 11:12 88 96 04/13/23 11:09 85 120/61 04/13/23 11:07 88 95 04/13/23 11:02 88 96 04/13/23 10:57 92 H 98 04/13/23 10:55 94 H 138/76 04/13/23 10:52 106 H 98 04/13/23 10:47 100 H 96 04/13/23 10:42 96 H 96 04/13/23 10:39 96 H 140/70 04/13/23 10:37 103 H 97 04/13/23 10:32 118 H 96 04/13/23 10:27 101 H 96 04/13/23 10:24 89 139/97 04/13/23 10:22 97 H 97 04/13/23 10:17 106 H 96 04/13/23 10:12 108 H 97 07/23/23 10:07 92 H 98 04/13/23 10:02 119 H 97 04/13/23 09:57 107 H 97 04/13/23 09:52 95 H 97 04/13/23 09:47 103 H 97 04/13/23 09:42 92 H 97 04/13/23 09:39 88 137/77 04/13/23 09:37 89 97 04/13/23 09:32 87 97 04/13/23 09:27 90 97 04/13/23 09:25 36.8 C 84 136/75 04/13/23 09:22 93 H 97 04/13/23 09:17 93 H 99 04/13/23 09:12 86 97 04/13/23 09:09 77 142/82 H 04/13/23 09:07 82 96 04/13/23 09:02 86 96 04/13/23 08:57 81 95 04/13/23 08:55 76 134/78 04/13/23 08:52 82 96 04/13/23 08:47 83 96 04/13/23 08:42 87 96 04/13/23 08:39 80 134/81 04/13/23 08:37 77 96 04/13/23 08:32 86 96 04/13/23 08:27 80 97 04/13/23 08:24 85 136/80 04/13/23 08:22 83 97 04/13/23 08:17 91 H 97 04/13/23 08:12 84 97 04/13/23 08:10 85 136/74 04/13/23 08:07 85 97 04/13/23 08:02 95 H 98 04/13/23 07:57 85 97 04/13/23 07:54 91 H 127/76 04/13/23 07:52 99 H 97 04/13/23 07:47 98 H 99 04/13/23 07:42 88 97 04/13/23 07:39 36.8 C 93 H 121/72 04/13/23 07:37 100 H 98 04/13/23 07:32 96 H 97 04/13/23 07:27 85 95 04/13/23 07:24 78 114/64 04/13/23 07:22 79 96 04/13/23 07:17 92 H 97 04/13/23 07:12 74 96 04/13/23 07:09 74 114/62 04/13/23 07:07 87 96 04/13/23 07:02 67 95 04/13/23 06:57 69 95 04/13/23 06:54 75 115/64 04/13/23 06:52 75 95 04/13/23 06:47 74 95 04/13/23 06:42 75 96 04/13/23 06:40 70 113/60 04/13/23 06:37 73 96 04/13/23 06:30 18 04/13/23 06:30 18 04/13/23 06:32 85 97 04/13/23 06:27 74 96 04/13/23 06:24 77 121/69 04/13/23 06:22 107 H 97 04/13/23 06:17 85 97 04/13/23 06:12 78 96 04/13/23 06:10 76 121/66 04/13/23 06:07 85 97 04/13/23 06:02 78 96 04/13/23 05:57 93 H 98 04/13/23 05:55 90 121/67 04/13/23 05:52 86 97 04/13/23 05:47 93 H 98 04/13/23 05:42 85 97 04/13/23 05:39 75 126/63 04/13/23 05:37 76 96 04/13/23 05:30 16 04/13/23 05:30 16 04/13/23 05:32 82 96 04/13/23 05:27 77 96 04/13/23 05:24 75 116/59 L 04/13/23 05:22 77 96 04/13/23 05:17 76 96 04/13/23 05:12 36.9 C 74 96 04/13/23 05:09 77 115/60 04/13/23 05:07 79 95 04/13/23 05:00 18 04/13/23 05:00 18 04/13/23 05:02 77 96 04/13/23 04:57 81 96 04/13/23 04:55 71 124/65 04/13/23 04:52 71 96 04/13/23 04:47 79 96 04/13/23 04:42 78 95 04/13/23 04:40 70 119/57 L 04/13/23 04:37 75 95 04/13/23 04:30 16 04/13/23 04:30 16 04/13/23 04:32 71 96 04/13/23 04:27 84 97 04/13/23 04:24 81 124/66 04/13/23 04:22 81 97 04/13/23 04:17 88 96 04/13/23 04:12 84 96 04/13/23 04:10 76 120/57 L 04/13/23 04:07 74 95 04/13/23 04:02 76 95 04/13/23 03:57 74 95 04/13/23 03:54 74 114/57 L 04/13/23 03:52 77 95 04/13/23 03:47 82 96 04/13/23 03:42 82 96 04/13/23 03:39 76 111/59 L 04/13/23 03:37 82 95 04/13/23 03:32 77 95 04/13/23 03:27 79 95 04/13/23 03:24 72 113/58 L 04/13/23 03:22 75 95 04/13/23 03:17 79 95 04/13/23 03:12 83 96 04/13/23 03:10 77 117/61 04/13/23 03:07 82 96 04/13/23 03:02 76 96 04/13/23 03:00 18 04/13/23 03:00 36.9 C 18 04/13/23 02:30 18 04/13/23 02:30 18 04/13/23 02:57 85 96 04/13/23 02:56 83 119/56 L 04/13/23 02:52 92 H 96 04/13/23 02:47 95 H 96 04/13/23 02:42 94 H 97 04/13/23 02:40 101 H 144/92 H 04/13/23 02:37 93 H 97 04/13/23 02:32 90 96 04/13/23 02:27 100 H 97 04/13/23 02:25 102 H 136/100 04/13/23 02:22 88 96 04/13/23 02:17 97 H 96 04/13/23 02:00 18 04/13/23 02:00 18 04/13/23 02:12 85 96 04/13/23 02:09 83 131/78 04/13/23 02:07 91 H 96 04/13/23 02:02 87 97 04/13/23 01:57 96 H 97 04/13/23 01:55 85 130/75 04/13/23 01:52 85 97 04/13/23 01:47 93 H 97 04/13/23 01:42 92 H 97 04/13/23 01:39 86 116/69 04/13/23 01:37 87 97 04/13/23 01:30 18 04/13/23 01:30 18 04/13/23 01:32 90 96 04/13/23 01:27 85 96 04/13/23 01:24 88 126/76 04/13/23 01:22 93 H 96 04/13/23 01:17 80 97 04/13/23 01:12 84 95 04/13/23 01:09 88 126/73 04/13/23 01:07 96 H 96 04/13/23 01:02 91 H 97 04/13/23 01:00 18 04/13/23 01:00 37.0 C 18 04/13/23 00:58 91 H 93 04/13/23 00:57 86 95 04/13/23 00:54 107 H 121/70 04/13/23 00:52 100 H 95 04/13/23 00:47 93 H 95 04/13/23 00:46 81 94 04/13/23 00:42 81 95 04/13/23 00:40 83 94 04/13/23 00:39 85 114/65 04/13/23 00:37 78 95 04/13/23 00:30 18 04/13/23 00:30 37.1 C 18 04/13/23 00:32 85 94 04/13/23 00:33 83 94 04/13/23 00:27 85 94 04/13/23 00:24 83 118/67 04/13/23 00:22 87 96 04/13/23 00:19 85 94 04/13/23 00:17 86 95 04/13/23 00:12 85 96 04/13/23 00:11 85 94 04/13/23 00:09 93 H 123/68 04/13/23 00:07 84 96
[2023-04-13] MEDS ORDERED: ceFAZolin 2000MG 2,000 MG/15 ML SYR IV ONE (12:15)
[2023-04-13] MEDS ORDERED: LIDOCAINE 2%/EPINEPHRINE 1:200,000 20 ML PF ONE (12:25)
[2023-04-13] MEDS ORDERED: MoRPHine SULFATE PF 1 MG/ML 10 ML AMP/VIAL ONE (12:25)
--- NOTE | 2023-04-13 12:28 | Discharge Summary ---
Date of Service April 17, 2023 Admission HPI Per Admitting Provider Patient is a 27-year-old G1, P0 admitted at 37 weeks for induction of labor for familial hypertriglyceridemia, as she is increased risk of pancreatitis, by the direction of [facility] Discharge Data Consultations 04/10/23 22:30 Consult Anesthesiology Stat Procedures Performed Operation Date: 04/13/23 12:15 Primary lower transverse delivery via Pfannenstiel incision Hospital Course (1) 37 weeks gestation of : No cervical change for 4 hours, FTP Stop pit Cat II tracing C section recommended Consents signed at bedside 2g ancef, 500mg azithro (2) Hypertriglyceridemia: Continue to monitor, as patient is increased risk of acute pancreatitis up to 20% (3) GBS (group B Streptococcus carrier), +RV culture, currently : Currently receiving her first dose of penicillin G at this time
[2023-04-13] MEDS ORDERED: OXYTOCIN 10 UNITS/ML VIAL ONE (12:29)
[2023-04-13] MEDS ORDERED: CITRIC ACID/SODIUM CITRATE 15 ML UDC ONE (12:39)
[2023-04-13] MEDS ORDERED: MoRPHine SULFATE PF 1 MG/ML 10 ML AMP/VIAL INT SPINAL ONE (13:18)
[2023-04-13] MEDS ORDERED: diphenhydrAMINE 50 MG/ML VIAL IV PRN (13:18)
[2023-04-13] MEDS ORDERED: ePHEDrine sulfate 50 MG/ML AMP IV PRN (13:18)
[2023-04-13] MEDS ORDERED: LACTATED RINGER'S 500 ML IV PRN (13:18)
[2023-04-13] MEDS ORDERED: NALOXONE HCL 0.08 MG in SYRINGE 1.8 ML IV PRN (13:18)
[2023-04-13] MEDS ORDERED: ONDANSETRON INJ 2 MG/ML 2 ML VIAL IV PRN (13:18)
[2023-04-13] MEDS ORDERED: NALOXONE HCL 1 MG in SODIUM CHLORIDE 0.9% 1000ML 1,000 ML IV PRN (13:18)
[2023-04-13] MEDS ORDERED: NALOXONE HCL 0.4 MG/1 ML VIAL/CARP IV PRN (13:18)
[2023-04-13] MEDS ORDERED: MEPERIDINE HCL 25 MG/ML CARP/VIAL IV PRN (13:18)
[2023-04-13] MEDS ORDERED: NALBUPHINE HCL INJ 10 MG/ML AMP IV PRN (13:18)
[2023-04-13] MEDS ORDERED: NO NARCOTICS OR SEDATIVES SCH (13:30)
[2023-04-13] MEDS ORDERED: ONDANSETRON INJ 2 MG/ML 2 ML VIAL ONE (13:30)
[2023-04-13] MEDS ORDERED: SODIUM CHLORIDE 0.9% 1000ML 1,000 ML IV SCH (13:30)
[2023-04-13] MEDS ORDERED: BENZOCAINE 20% SPRY 85 APPLN/85 GM CAN EXT PRN (13:41)
[2023-04-13] MEDS ORDERED: MAGNESIUM HYDROXIDE SUSP 30 ML UDC PO PRN (13:41)
[2023-04-13] MEDS ORDERED: SENNA 8.6 MG TAB PO PRN (13:41)
[2023-04-13] MEDS ORDERED: DIPHTHERIA/TETANUS/PERTUSSIS Vaccine (Tdap, Age 7+yrs) 0.5mL SYR/VL IM ONE (13:41)
[2023-04-13] MEDS ORDERED: HYDROCORTISONE ACETATE 25 MG SUPP PR PRN (13:41)
[2023-04-13] MEDS ORDERED: IBUPROFEN 600 MG TAB PO PRN (13:41)
[2023-04-13] MEDS ORDERED: LACTATED RINGER'S 1,000 ML IV SCH (13:45)
--- NOTE | 2023-04-13 13:48 | Operative Report ---
Post Operative Report Pre & Post Diagnosis Operation Date: 04/13/23 12:15 Pre-Op Diagnosis: failure to progress, primary section Post-Op Diagnosis: failure to progress, primary section I identified the patient and participated in the time-out.: Yes Procedure Operation Date: 04/13/23 12:15 Primary lower transverse delivery via Pfannenstiel incision Surgeon Latricia Millan MD, PhD Medication Coordinator commercial hvac technician, RN Estimated Blood Loss 700 Findings Consistent with Post-Op Diagnosis Liveborn female at 1309, Apgars 9/9. Weight 287 0 g, intact placenta with three-vessel cord. Cord pH not obtained. Normal-appearing uterus, normal- appearing bilateral fallopian tubes and ovaries, small 2 cm paratubal cyst on the end of the right fallopian tube noted Fluids See anesthesia record Specimens Placenta Drains Virgen catheter Anesthesia Type Labor Epidural Complications None Disposition Accompanied Patient To Recovery: No Indications Failure to progress, category 2 tracing Description of Procedure CD Delivery Note History synopsis: Patient is a 27-year-old G1, P0 admitted at 37 weeks for worsening hypertriglycerdiemia, as patient had increased risk of acute pancreatitis. She was started for induction with Cervidil, progressed to fingertip and received several doses of p.o. Cytotec and then sublingual Cytotec. She then progressed to 2 cm, and started on oxytocin for augmentation. She made cervical change after AROM and received an epidural for pain control. She progressed overnight to 6 cm. And then remained 6 cm for over 4 hours despite adequate augmentation with oxytocin. At this time she was noted to have multiple elevated blood pressures 4 hours apart, PIH labs were normal. Met criteria for gestational hypertension at term. Also noted to have a category 2 tracing and the patient was counseled for primary Procedure Summary: section was recommended. Risks, benefits and alternatives were discussed including but not limited to infection, bleeding that may require blood products or hysterectomy for life saving measures, injury to surrounding organs including but not limited to bowel, bladder, ureters, tubes and ovaries and/or the baby. Should injury occur it could require longer/additional surgery to repair. Patient was also counselled about risk of DVT/PE, and injury to infant during delivery. The patient stated understanding and desired to proceed. All questions were answered posed by patient. Prior to being taken to the OR, 2 grams of cefazolin IV azithromycin 500 mg IV was administered. The patient was taken to the operating room where regional anesthesia was found to be adequate. . She was then prepared and draped in the usual sterile fashion in the dorsal supine position with a leftward tilt displacing the uterus. Virgen was draining to gravity. SCDs were on bilateral lower extremities. A pfannenstiel skin incision was then made with the scalpel and carried through to the underlying layer of fascia. The fascia was incised in the midline and the incision extended laterally with the Barnes scissors. The superior aspect of the facial incision was then grasped with the Lilliana clamps, elevated and the underlying rectus muscles dissected off bluntly. Attention was then turned to the inferior aspect of this incision which in a similar fashion was grasped, elevated with the Lilliana clamps and the rectus muscle dissected off bluntly. The rectus muscles were in the midline. The peritoneum identified, grasped with the pick-ups and entered sharply with the Metzenbaum scissors. The peritoneal incision was then extended superiorly and inferiorly with good visualization of the bladder. The bladder blade was inserted and the vesicouterine peritoneum was identified, grasped with the pick-ups, and entered sharply with Metzenbaum scissors. This incision was then extended laterally and the bladder flap created digitally and the bladder blade was reinserted. The lower uterine segment was identified and incised in a transverse fashion with the scalpel. The uterine incision was then extended bluntly laterally. Artificial rupture of membranes demonstrated clear fluid. The bladder blade was removed. The fetus was in cephalic presentation. The infant's head delivered atraumatically. The anterior shoulders were delivered followed by the posterior shoulders then the remainder of the body. The 's mouth and nose were bulb suctioned. The umbilical cord was clamped times two and cut. The was handed off to the awaiting pediatric staff. A female infant was delivered weighing 2870g with APGARS of 9 at 1 minute and 9 at 5 minutes. The was taken to the recovery room for transition. Cord blood gases were not obtained. The placenta was removed with gentle traction. 30 units of oxytocin were added to IVF and allowed to run freely. The uterus was exteriorized and cleared of all clots and debris. The uterine incision was inspected and found to be without any extensions and was repaired with 0 Vicryl in a running, locked fashion. A second imbricating layer was performed. Upon inspection, the repaired hysterotomy was found to be hemostatic. Reese powder was then placed over the hysterotomy. The uterus was firm and returned to the abdomen. The gutters were cleared of all clots and debris. The fascia was reapproximated with 0 Vicryl in a running fashion. The subcutaneous layer was closed with 2-0 Vicryl in a running fashion.The skin was closed in a subcuticular fashion with 4-0 vicryl. Steri-Strips and then karla dressing was applied. The patient tolerated the procedure well. Sponge, lap and needle counts were c orrect x4. The patient was taken to the recovery room in stable condition. Attestation: My Medication Coordinator was necessary throughout the procedure(s) for tissue retraction I understand that section 1842 (b)(7)(D) of the Social Security Act generally prohibits Medicare physician fee schedule payment for the services of [id number] in teaching hospitals when qualified residents are available to furnish such services. I certify that the services for which payment is claimed were medically necessary, and that no qualified resident was available to perform the services. I further understand that these services are subject to post-payment review by the Medicare carrier. I attest to the content of the Intraoperative Record and any orders documented therein. Any exceptions are noted below.
[2023-04-13] MEDS ORDERED: OXYTOCIN 20 UNITS in LACTATED RINGER'S 1,000 ML IV SCH (14:00)
--- NOTE | 2023-04-13 14:25 | Anesthesia Procedure Note ---
Date of Service April 13, 2023 Anesthesia Post Epidural Note Vital Signs Vital Signs: Temp Pulse Resp BP Pulse Ox 99.0 F 96 H 18 97/51 L 99 04/13/23 14:14 04/13/23 14:22 04/13/23 06:30 04/13/23 14:22 04/13/23 14:21 Pain Intensity Right Abdomen: Pain Intensity: 0 Notes Mental Status: alert / awake / arousable and participated in evaluation Nausea / Vomiting: adequately controlled Pain: adequately controlled Airway Patency, RR, SpO2: stable & adequate BP & HR: stable & adequate Hydration State: stable & adequate Neuraxial Anesthesia: was administered and sensory block is resolving Anesthetic Complications: no major complications apparent and Pt Satisfied with anesthetic care Epidural: Removed without complications and With tip intact
--- NOTE | 2023-04-13 14:25 | Anesthesiology Progress Note ---
Date of Service April 13, 2023 Anesthesia Post Procedure Vital Signs Vital Signs: Temp Pulse Resp BP Pulse Ox 04/13/23 14:14 99.0 F 04/13/23 13:47 98.6 F 04/13/23 14:22 96 H 97/51 L 04/13/23 14:21 105 H 99 04/13/23 14:16 88 97 04/13/23 14:11 87 80/42 L 96 04/13/23 14:06 95 H 99 04/13/23 14:01 97 04/13/23 14:01 94 H 04/13/23 14:01 95 H 100/55 L 94 04/13/23 13:56 87 98 04/13/23 13:51 94 H 99 04/13/23 13:50 94 H 107/54 L 04/13/23 12:39 90 147/89 H 04/13/23 12:37 92 H 96 04/13/23 12:32 96 H 96 04/13/23 12:27 90 96 04/13/23 12:25 90 143/81 H 04/13/23 12:22 94 H 96 04/13/23 12:17 90 96 04/13/23 12:12 90 97 04/13/23 12:09 88 143/83 H 04/13/23 12:07 85 97 04/13/23 12:02 90 98 04/13/23 11:57 92 H 97 04/13/23 11:52 104 H 98 04/13/23 11:47 93 H 97 04/13/23 11:42 86 96 04/13/23 11:39 80 124/68 04/13/23 11:37 85 96 04/13/23 11:32 97 H 96 04/13/23 11:27 82 95 04/13/23 11:25 83 138/75 04/13/23 11:22 89 95 04/13/23 11:17 104 H 96 04/13/23 11:12 88 96 04/13/23 11:09 85 120/61 04/13/23 11:07 88 95 04/13/23 11:02 88 96 04/13/23 10:57 92 H 98 04/13/23 10:55 94 H 138/76 04/13/23 10:52 106 H 98 04/13/23 10:47 100 H 96 04/13/23 10:42 96 H 96 04/13/23 10:39 96 H 140/70 04/13/23 10:37 103 H 97 04/13/23 10:32 118 H 96 04/13/23 10:27 101 H 96 04/13/23 10:24 89 139/97 04/13/23 10:22 97 H 97 04/13/23 10:17 106 H 96 04/13/23 10:12 108 H 97 04/13/23 10:07 92 H 98 04/13/23 10:02 119 H 97 04/13/23 09:57 107 H 97 04/13/23 09:52 95 H 97 04/13/23 09:47 103 H 97 04/13/23 09:42 92 H 97 04/13/23 09:39 88 137/77 04/13/23 09:37 89 97 04/13/23 09:32 87 97 04/13/23 09:27 90 97 04/13/23 09:25 98.2 F 84 136/75 04/13/23 09:22 93 H 97 04/13/23 09:17 93 H 99 04/13/23 09:12 86 97 04/13/23 09:09 77 142/82 H 04/13/23 09:07 82 96 04/13/23 09:02 86 96 04/13/23 08:57 81 95 04/13/23 08:55 76 134/78 04/13/23 08:52 82 96 04/13/23 08:47 83 96 04/13/23 08:42 87 96 04/13/23 08:39 80 134/81 04/13/23 08:37 77 96 04/13/23 08:32 86 96 04/13/23 08:27 80 97 04/13/23 08:24 85 136/80 04/13/23 08:22 83 97 04/13/23 08:17 91 H 97 04/13/23 08:12 84 97 04/13/23 08:10 85 136/74 04/13/23 08:07 85 97 04/13/23 08:02 95 H 98 04/13/23 07:57 85 97 04/13/23 07:54 91 H 127/76 04/13/23 07:52 99 H 97 04/13/23 07:47 98 H 99 04/13/23 07:42 88 97 04/13/23 07:39 98.2 F 93 H 121/72 04/13/23 07:37 100 H 98 04/13/23 07:32 96 H 97 04/13/23 07:27 85 95 04/13/23 07:24 78 114/64 04/13/23 07:22 79 96 04/13/23 07:17 92 H 97 04/13/23 07:12 74 96 04/13/23 07:09 74 114/62 04/13/23 07:07 87 96 04/13/23 07:02 67 95 04/13/23 06:57 69 95 04/13/23 06:54 75 115/64 04/13/23 06:52 75 95 04/13/23 06:47 74 95 04/13/23 06:42 75 96 04/13/23 06:40 70 113/60 04/13/23 06:37 73 96 04/13/23 06:30 18 04/13/23 06:30 18 04/13/23 06:32 85 97 04/13/23 06:27 74 96 04/13/23 06:24 77 121/69 04/13/23 06:22 107 H 97 04/13/23 06:17 85 97 04/13/23 06:12 78 96 04/13/23 06:10 76 121/66 04/13/23 06:07 85 97 04/13/23 06:02 78 96 04/13/23 05:57 93 H 98 04/13/23 05:55 90 121/67 04/13/23 05:52 86 97 04/13/23 05:47 93 H 98 04/13/23 05:42 85 97 04/13/23 05:39 75 126/63 04/13/23 05:37 76 96 04/13/23 05:30 16 04/13/23 05:30 16 04/13/23 05:32 82 96 04/13/23 05:27 77 96 04/13/23 05:24 75 116/59 L 04/13/23 05:22 77 96 04/13/23 05:17 76 96 04/13/23 05:12 98.4 F 74 96 04/13/23 05:09 77 115/60 04/13/23 05:07 79 95 04/13/23 05:00 18 04/13/23 05:00 18 04/13/23 05:02 77 96 04/13/23 04:57 81 96 04/13/23 04:55 71 124/65 04/13/23 04:52 71 96 04/13/23 04:47 79 96 04/13/23 04:42 78 95 04/13/23 04:40 70 119/57 L 04/13/23 04:37 75 95 04/13/23 04:30 16 04/13/23 04:30 16 04/13/23 04:32 71 96 04/13/23 04:27 84 97 04/13/23 04:24 81 124/66 04/13/23 04:22 81 97 04/13/23 04:17 88 96 04/13/23 04:12 84 96 04/13/23 04:10 76 120/57 L 04/13/23 04:07 74 95 04/13/23 04:02 76 95 04/13/23 03:57 74 95 04/13/23 03:54 74 114/57 L 04/13/23 03:52 77 95 04/13/23 03:47 82 96 04/13/23 03:42 82 96 04/13/23 03:39 76 111/59 L 04/13/23 03:37 82 95 04/13/23 03:32 77 95 04/13/23 03:27 79 95 04/13/23 03:24 72 113/58 L 04/13/23 03:22 75 95 04/13/23 03:17 79 95 04/13/23 03:12 83 96 04/13/23 03:10 77 117/61 04/13/23 03:07 82 96 04/13/23 03:02 76 96 04/13/23 03:00 18 04/13/23 03:00 98.4 F 18 04/13/23 02:30 18 04/13/23 02:30 18 04/13/23 02:57 85 96 04/13/23 02:56 83 119/56 L 04/13/23 02:52 92 H 96 04/13/23 02:47 95 H 96 04/13/23 02:42 94 H 97 04/13/23 02:40 101 H 144/92 H 04/13/23 02:37 93 H 97 04/13/23 02:32 90 96 04/13/23 02:27 100 H 97 04/13/23 02:25 102 H 136/100 04/13/23 02:22 88 96 04/13/23 02:17 97 H 96 04/13/23 02:00 18 04/13/23 02:00 18 04/13/23 02:12 85 96 04/13/23 02:09 83 131/78 04/13/23 02:07 91 H 96 04/13/23 02:02 87 97 04/13/23 01:57 96 H 97 04/13/23 01:55 85 130/75 04/13/23 01:52 85 97 04/13/23 01:47 93 H 97 04/13/23 01:42 92 H 97 04/13/23 01:39 86 116/69 04/13/23 01:37 87 97 04/13/23 01:30 18 04/13/23 01:30 18 04/13/23 01:32 90 96 04/13/23 01:27 85 96 04/13/23 01:24 88 126/76 04/13/23 01:22 93 H 96 04/13/23 01:17 80 97 04/13/23 01:12 84 95 04/13/23 01:09 88 126/73 04/13/23 01:07 96 H 96 04/13/23 01:02 91 H 97 04/13/23 01:00 18 04/13/23 01:00 98.6 F 18 04/13/23 00:58 91 H 93 04/13/23 00:57 86 95 04/13/23 00:54 107 H 121/70 04/13/23 00:52 100 H 95 04/13/23 00:47 93 H 95 04/13/23 00:46 81 94 04/13/23 00:42 81 95 04/13/23 00:40 83 94 04/13/23 00:39 85 114/65 04/13/23 00:37 78 95 04/13/23 00:30 18 04/13/23 00:30 98.8 F 18 04/13/23 00:32 85 94 04/13/23 00:33 83 94 04/13/23 00:27 85 94 04/13/23 00:24 83 118/67 04/13/23 00:22 87 96 04/13/23 00:19 85 94 04/13/23 00:17 86 95 04/13/23 00:12 85 96 04/13/23 00:11 85 94 04/13/23 00:09 93 H 123/68 04/13/23 00:07 84 96 04/13/23 00:02 82 95 04/12/23 23:57 94 H 97 04/12/23 23:54 86 117/71 04/12/23 23:52 79 95 04/12/23 23:47 92 H 96 04/12/23 23:42 99 H 96 04/12/23 23:39 84 118/69 04/12/23 23:37 91 H 97 04/12/23 23:30 18 04/12/23 23:30 18 04/12/23 23:32 90 97 04/12/23 23:27 85 98 04/12/23 23:25 93 H 115/69 04/12/23 23:22 85 97 04/12/23 23:17 100 H 98 04/12/23 23:12 89 97 04/12/23 23:09 78 108/55 L 04/12/23 23:07 74 96 04/12/23 23:00 18 04/12/23 23:00 18 04/12/23 23:02 76 96 04/12/23 23:00 18 04/12/23 23:00 18 04/12/23 22:57 76 96 04/12/23 22:54 75 110/59 L 04/12/23 22:52 80 96 04/12/23 22:47 79 95 04/12/23 22:42 74 96 04/12/23 22:39 82 111/59 L 04/12/23 22:37 82 97 04/12/23 22:32 77 96 04/12/23 22:30 18 04/12/23 22:30 98.8 F 18 04/12/23 22:27 82 97 04/12/23 22:24 75 106/61 04/12/23 22:22 83 98 04/12/23 22:20 99 H 91 04/12/23 22:17 73 95 04/12/23 22:12 76 96 04/12/23 22:09 75 108/60 04/12/23 22:07 75 96 04/12/23 22:00 16 04/12/23 22:00 16 04/12/23 22:02 82 96 04/12/23 21:57 88 97 04/12/23 21:54 85 116/65 04/12/23 21:52 79 97 04/12/23 21:47 87 99 04/12/23 21:42 84 98 04/12/23 21:40 76 116/63 04/12/23 21:30 18 04/12/23 21:30 18 04/12/23 21:37 81 98 04/12/23 21:32 90 98 04/12/23 21:27 86 100 04/12/23 21:25 120 H 132/82 04/12/23 21:22 88 99 04/12/23 21:17 82 97 04/12/23 21:12 86 99 04/12/23 21:10 85 127/76 04/12/23 21:00 18 04/12/23 21:00 98.4 F 18 04/12/23 21:07 90 99 04/12/23 20:30 18 04/12/23 20:30 18 04/12/23 20:35 18 04/12/23 20:35 18 04/12/23 20:40 18 04/12/23 20:40 18 04/12/23 20:16 20 04/12/23 20:16 20 04/12/23 21:02 81 98 04/12/23 20:57 86 97 04/12/23 20:55 97 H 92 04/12/23 20:54 82 117/60 04/12/23 20:52 88 97 04/12/23 20:51 86 127/66 04/12/23 20:48 81 125/65 04/12/23 20:47 100 H 97 04/12/23 20:45 91 H 18 130/81 04/12/23 20:42 86 127/73 97 04/12/23 20:39 88 128/73 04/12/23 20:37 92 H 96 04/12/23 20:36 86 128/69 04/12/23 20:33 83 128/66 04/12/23 20:32 87 148/85 H 97 04/12/23 20:27 87 96 04/12/23 20:22 107 H 97 04/12/23 20:17 92 H 99 04/12/23 20:15 82 94 04/12/23 20:12 93 H 94 04/12/23 20:07 79 99 04/12/23 20:02 94 H 98 04/12/23 20:00 126 H 18 146/76 H 04/12/23 19:57 93 H 95 04/12/23 19:55 90 94 04/12/23 19:52 88 97 04/12/23 19:47 96 H 98 04/12/23 19:42 91 H 98 04/12/23 19:37 88 94 04/12/23 19:38 85 94 04/12/23 19:30 18 04/12/23 19:30 18 04/12/23 19:32 93 H 98 04/12/23 19:28 96 H 144/88 H 04/12/23 19:27 95 H 98 04/12/23 19:22 86 97 04/12/23 19:17 81 96 04/12/23 19:13 76 135/78 04/12/23 19:12 87 97 04/12/23 19:07 83 97 04/12/23 18:45 20 04/12/23 18:45 20 04/12/23 19:02 98.8 F 78 18 97 04/12/23 18:59 76 139/78 04/12/23 18:57 97 04/12/23 18:57 85 04/12/23 18:57 84 134/85 04/12/23 18:54 83 130/79 04/12/23 18:53 77 128/78 04/12/23 18:52 78 97 04/12/23 18:51 76 131/89 04/12/23 18:49 81 133/82 04/12/23 18:47 96 04/12/23 18:47 74 04/12/23 18:47 80 135/101 H 04/12/23 18:00 20 04/12/23 18:00 98.2 F 20 04/12/23 18:45 81 20 133/74 04/12/23 18:42 85 97 04/12/23 18:43 88 125/73 04/12/23 17:30 20 04/12/23 17:30 20 04/12/23 18:41 86 134/77 04/12/23 18:38 83 134/79 04/12/23 18:37 85 97 04/12/23 18:36 79 135/81 04/12/23 18:34 86 137/76 04/12/23 18:32 85 133/80 96 04/12/23 18:30 83 141/80 H 04/12/23 18:29 81 139/78 04/12/23 18:27 97 04/12/23 18:27 88 04/12/23 18:27 88 142/81 H 04/12/23 18:24 79 146/90 H 04/12/23 18:22 86 138/84 97 04/12/23 18:20 80 137/80 04/12/23 18:17 80 98 04/12/23 18:12 92 H 99 04/12/23 18:07 84 98 04/12/23 18:02 99 H 98 04/12/23 17:57 87 99 04/12/23 17:52 84 99 04/12/23 17:47 85 99 04/12/23 17:42 83 98 04/12/23 17:37 89 97 04/12/23 17:32 79 98 04/12/23 17:27 86 97 04/12/23 17:10 20 04/12/23 17:10 20 04/12/23 17:22 84 98 04/12/23 17:17 88 98 04/12/23 17:15 85 142/80 H 04/12/23 15:30 20 04/12/23 15:30 20 04/12/23 16:00 20 04/12/23 16:00 20 04/12/23 15:34 80 120/69 04/12/23 15:00 20 04/12/23 15:00 20 04/12/23 14:30 86 122/73 Pain Intensity Right Abdomen: Pain Intensity: 0 Transfer of Care Handoff Completed per policy Notes Mental Status: alert / awake / arousable and participated in evaluation Nausea / Vomiting: adequately controlled Pain: adequately controlled Airway Patency, RR, SpO2: stable & adequate BP & HR: stable & adequate Hydration State: stable & adequate Neuraxial Anesthesia: was administered and sensory block is resolving Anesthetic Complications: no major complications apparent and Pt Satisfied with anesthetic care
[2023-04-13] MEDS: KETOROLAC 30 MG/ML VIAL IV PRN ×2 (16:03→23:28)
[2023-04-13] MEDS: SIMETHICONE 80 MG CHEW PO SCH ×2 (16:25→22:00)
[2023-04-13] MEDS: DOCUSATE SODIUM 100 MG CAP PO SCH (22:00)
[2023-04-13] MEDS: FAMOTIDINE 20 MG TAB PO SCH (23:14)
[2023-04-13] MEDS: MONTELUKAST SODIUM 10 MG TABLET PO SCH (23:25)
[2023-04-14] MEDS: KETOROLAC 30 MG/ML VIAL IV PRN (04:48)
[2023-04-14] MEDS ORDERED: DC INTRASPINAL MORPHINE SCH (07:18)
[2023-04-14] MEDS ORDERED: ONDANSETRON INJ 2 MG/ML 2 ML VIAL IV PRN (07:19)
[2023-04-14] MEDS ORDERED: diphenhydrAMINE Capsule 25 MG CAP PO PRN (07:19)
[2023-04-14] MEDS ORDERED: oxyCODONE/ACETAMINOPHEN 5mg/325mg TAB PO PRN (07:19)
[2023-04-14] MEDS ORDERED: KETOROLAC 30 MG/ML VIAL IV PRN (07:19)
[2023-04-14] MEDS ORDERED: diphenhydrAMINE 50 MG/ML VIAL IV PRN (07:19)
[2023-04-14] MEDS ORDERED: MEPERIDINE HCL 50 MG/ML CARP IV PRN (07:19)
[2023-04-14] MEDS ORDERED: PROMETHAZINE HCL 25 MG in SODIUM CHLORIDE 0.9% 50 ML IV PRN (07:19)
[2023-04-14 09:18] LABS: Hematocrit (blood only) 27.6 % (37.0-47.0); Hemoglobin 9.3 g/dl (12.0-16.0); Mean Corpuscular Hemoglobin 29.2 pg (25.0-34.0); Mean Corpuscular Hgb Conc 33.7 g/dL (32.0-36.0); Mean Corpuscular Volume 86.8 fL (80.0-100.0); Mean Platelet Volume 10.3 fL (9.4-12.4); Platelet Count 149 K/uL (130-400); Red Blood Count 3.18 M/uL (4.20-5.40); White Blood Count 11.33 K/ul (4.8-10.8)
[2023-04-14 09:19] LABS: Basophils # (auto) 0.04 K/uL (0-0.2); Basophils % (auto) 0.4 %; Eosinophils # (auto) 0.09 K/uL (0-0.50); Eosinophils % (auto) 0.8 %; Immature Granulocytes # (auto) 0.07 K/uL (0.01-0.20); Immature Granulocytes % (auto) 0.6 %; Lymphocytes # (auto) 1.18 K/uL (1.2-3.4); Lymphocytes % (auto) 10.4 %; Monocytes # (auto) 0.46 K/uL (0.11-0.59); Monocytes % (auto) 4.1 %; Neutrophils # (auto) 9.49 K/uL (1.40-6.50); Neutrophils % (auto) 83.7 %
[2023-04-14] MEDS: ENOXAPARIN INJ 40 MG/0.4 ML SYR SQ SCH (09:29)
[2023-04-14] MEDS: SIMETHICONE 80 MG CHEW PO SCH ×4 (09:29→20:09)
[2023-04-14] MEDS: DOCUSATE SODIUM 100 MG CAP PO SCH ×2 (09:29→20:09)
[2023-04-14] MEDS: PRENATAL VITAMIN 1 TAB PO SCH (09:29)
[2023-04-14] MEDS: FERROUS SULFATE 325 MG TAB PO SCH (09:32)
--- NOTE | 2023-04-14 09:34 | Obstetrical Progress Note ---
Date of Service April 14, 2023 Subjective Ambulation: ambulating normally Voiding: no voiding problems Passing Gas:: Yes Diet Tolerance:: regular diet Lochia:: Small Feeding Type:: bottle feeding Current Pain Level(1-10): 0 doing well Physical Exam Constitutional WD/WN, vitals as above Gastrointestinal (Abdomen) Inspection/Auscultation: abdomen normal to inspection incision c/d/i Musculoskeletal Extremities: extremities normal to inspection Skin no rashes, warm and dry Neurologic patellar DTR's 2+ bilat, sensation intact Psychiatric A+Ox3, euthymic affect Results & Data Vital Signs (Past 12 Hours) Vital Signs Temp Pulse Resp BP Pulse Ox O2 Del Method 04/14/23 07:40 36.6 C 86 18 106/72 94 Room Air 04/14/23 06:30 20 98 04/14/23 05:40 16 99 04/14/23 03:45 36.9 C 81 18 109/72 98 Room Air 04/14/23 04:00 18 98 04/14/23 02:00 18 96 04/14/23 03:00 16 99 04/14/23 01:00 18 96 04/14/23 00:10 16 96 04/13/23 23:15 18 100 04/13/23 23:15 36.6 C 76 18 116/79 100 Room Air 04/13/23 22:00 18 100 Laboratory Results Laboratory Results - last 72 hr 04/12/23 04/12/23 04/12/23 20:12 20:12 21:30 WBC 12.64 H RBC 3.94 L Hgb 12.3 Hct 33.3 L MCV 84.5 MCH 31.2 MCHC 36.9 H RDW Std Deviation 51.8 H RDW Coeff of Kellen 16.7 H Plt Count 202 MPV 10.3 Immature Gran % (Auto) 0.9 Neut % (Auto) 79.0 Lymph % (Auto) 14.1 [place] % (Auto) 4.8 Eos % (Auto) 0.9 Baso % (Auto) 0.3 Neut # (Auto) 9.99 H Lymph # (Auto) 1.78 [place] # (Auto) 0.61 H Eos # (Auto) 0.11 Baso # (Auto) 0.04 Immature Gran # (Auto) 0.11 Sodium 134 L Potassium TNP TNP Chloride 104 Carbon Dioxide 19 L Anion Gap 11 BUN 6 Creatinine 0.47 L Est Cr Clr Drug Dosing 193.2 Est GFR ( Amer) > 150.0 Est GFR (Non-Af Amer) 133.5 BUN/Creatinine Ratio 12.8 Glucose 87 Calcium 9.1 Total Bilirubin 0.5 AST TNP TNP ALT 17 Alkaline Phosphatase 104 Total Protein 7.0 Albumin 3.7 Globulin 3.3 Albumin/Globulin Ratio 1.1 Urine Color Urine Appearance Urine pH Ur Specific [place] Urine Protein Urine Glucose (UA) Urine Ketones Urine Blood Urine Nitrite Urine Bilirubin Urine Urobilinogen Ur Leukocyte Esterase Urine WBC (Auto) Urine RBC (Auto) U Hyaline Cast (Auto) U Epithel Cells (Auto) Urine Bacteria (Auto) Ur Renal Epithelial Cell Ur Random Creatinine U Random Total Protein Protein/Creatinin Ratio 04/12/23 04/13/23 04/14/23 21:30 02:47 08:42 WBC 11.33 H RBC 3.18 L Hgb 9.3 L D Hct 27.6 L MCV 86.8 MCH 29.2 MCHC 33.7 RDW Std Deviation 54.0 H RDW Coeff of Kellen 17.0 H Plt Count 149 MPV 10.3 Immature Gran % (Auto) 0.6 Neut % (Auto) 83.7 Lymph % (Auto) 10.4 [place] % (Auto) 4.1 Eos % (Auto) 0.8 Baso % (Auto) 0.4 Neut # (Auto) 9.49 H Lymph # (Auto) 1.18 L [place] # (Auto) 0.46 Eos # (Auto) 0.09 Baso # (Auto) 0.04 Immature Gran # (Auto) 0.07 Sodium Potassium Chloride Carbon Dioxide Anion Gap BUN Creatinine Est Cr Clr Drug Dosing Est GFR ( Amer) Est GFR (Non-Af Amer) BUN/Creatinine Ratio Glucose Calcium Total Bilirubin AST ALT Alkaline Phosphatase Total Protein Albumin Globulin Albumin/Globulin Ratio Urine Color [place] Urine Appearance Turbid A Urine pH 7.0 Ur Specific [place] 1.007 Urine Protein 2+ H Urine Glucose (UA) Negative Urine Ketones Negative Urine Blood 3+ H Urine Nitrite Negative Urine Bilirubin Negative Urine Urobilinogen Negative Ur Leukocyte Esterase Trace H Urine WBC (Auto) >30 H Urine RBC (Auto) >30 H U Hyaline Cast (Auto) 1-5 U Epithel Cells (Auto) 10-20 H Urine Bacteria (Auto) Negative Ur Renal Epithelial Cell Not Reportable Ur Random Creatinine 47.4 U Random Total Protein 7.3 Protein/Creatinin Ratio 0.2
[2023-04-14] MEDS: ACETAMINOPHEN 500 MG TAB PO PRN ×2 (12:12→20:10)
[2023-04-14] MEDS ORDERED: bisacodyL 5 MG TABEC PO SCH (20:00)
[2023-04-14] MEDS: FAMOTIDINE 20 MG TAB PO SCH (20:10)
[2023-04-14] MEDS: MONTELUKAST SODIUM 10 MG TABLET PO SCH (20:10)
[2023-04-15] MEDS: ACETAMINOPHEN 500 MG TAB PO PRN ×2 (03:15→08:19)
[2023-04-15 07:27] LABS: Hematocrit (blood only) 26.8 % (37.0-47.0)
[2023-04-15 07:43] LABS: Creatinine Clr Calc Pharmacy 232.8 ml/min; Est GFR (African American) > 150.0 ml/min; Est GFR (Non-African American) 141.9 ml/min
--- NOTE | 2023-04-15 07:50 | Obstetrical Progress Note ---
Date of Service April 15, 2023 Subjective Ambulation: ambulating normally Voiding: no voiding problems Passing Gas:: Yes Diet Tolerance:: regular diet Lochia:: Small Feeding Type:: bottle feeding Current Pain Level(1-10): 0 doing well Physical Exam Constitutional WD/WN, vitals as above Gastrointestinal (Abdomen) Inspection/Auscultation: abdomen normal to inspection and + abdominal surgical incision Musculoskeletal Extremities: extremities normal to inspection Skin no rashes, warm and dry Neurologic patellar DTR's 2+ bilat, sensation intact Psychiatric A+Ox3, euthymic affect Results & Data Vital Signs (Past 12 Hours) Vital Signs Temp Pulse Resp BP Pulse Ox O2 Del Method 04/15/23 00:34 36.5 C 76 18 106/69 97 Room Air 04/14/23 20:21 36.7 C 87 18 117/79 96 Room Air Laboratory Results 04/10/23 04/10/23 04/12/23 22:53 Unknown 20:12 WBC 9.90 12.64 H RBC 3.30 L 3.94 L Hgb 10.5 L 12.3 Hct 28.0 L 33.3 L MCV 84.8 84.5 MCH 31.8 31.2 MCHC 37.5 H 36.9 H RDW Std Deviation 52.7 H 51.8 H RDW Coeff of Kellen 17.0 H 16.7 H Plt Count 260 202 MPV 11.1 10.3 Immature Gran % (Auto) 0.9 Neut % (Auto) 79.0 Lymph % (Auto) 14.1 [place] % (Auto) 4.8 Eos % (Auto) 0.9 Baso % (Auto) 0.3 Neut # (Auto) 9.99 H Lymph # (Auto) 1.78 [place] # (Auto) 0.61 H Eos # (Auto) 0.11 Baso # (Auto) 0.04 Immature Gran # (Auto) 0.11 Sodium Potassium Chloride Carbon Dioxide Anion Gap BUN Creatinine Est Cr Clr Drug Dosing Est GFR ( Amer) Est GFR (Non-Af Amer) BUN/Creatinine Ratio Glucose Calcium Total Bilirubin AST ALT Alkaline Phosphatase Total Protein Albumin Globulin Albumin/Globulin Ratio Urine Color Urine Appearance Urine pH Ur Specific [place] Urine Protein Urine Glucose (UA) Urine Ketones Urine Blood Urine Nitrite Urine Bilirubin Urine Urobilinogen Ur Leukocyte Esterase Urine WBC (Auto) Urine RBC (Auto) U Hyaline Cast (Auto) U Epithel Cells (Auto) Urine Bacteria (Auto) Ur Renal Epithelial Cell Ur Random Creatinine U Random Total Protein Protein/Creatinin Ratio SARS-CoV-2, RNA, NAAT NEGATIVE 04/12/23 04/12/23 04/12/23 20:12 21:30 21:30 WBC RBC Hgb Hct MCV MCH MCHC RDW Std Deviation RDW Coeff of Kellen Plt Count MPV Immature Gran % (Auto) Neut % (Auto) Lymph % (Auto) [place] % (Auto) Eos % (Auto) Baso % (Auto) Neut # (Auto) Lymph # (Auto) [place] # (Auto) Eos # (Auto) Baso # (Auto) Immature Gran # (Auto) Sodium 134 L Potassium TNP TNP Chloride 104 Carbon Dioxide 19 L Anion Gap 11 BUN 6 Creatinine 0.47 L Est Cr Clr Drug Dosing 193.2 Est GFR ( Amer) > 150.0 Est GFR (Non-Af Amer) 133.5 BUN/Creatinine Ratio 12.8 Glucose 87 Calcium 9.1 Total Bilirubin 0.5 AST TNP TNP ALT 17 Alkaline Phosphatase 104 Total Protein 7.0 Albumin 3.7 Globulin 3.3 Albumin/Globulin Ratio 1.1 Urine Color Urine Appearance Urine pH Ur Specific [place] Urine Protein Urine Glucose (UA) Urine Ketones Urine Blood Urine Nitrite Urine Bilirubin Urine Urobilinogen Ur Leukocyte Esterase Urine WBC (Auto) Urine RBC (Auto) U Hyaline Cast (Auto) U Epithel Cells (Auto) Urine Bacteria (Auto) Ur Renal Epithelial Cell Ur Random Creatinine 47.4 U Random Total Protein 7.3 Protein/Creatinin Ratio 0.2 SARS-CoV-2, RNA, NAAT 04/13/23 04/14/23 04/15/23 02:47 08:42 07:05 WBC 11.33 H RBC 3.18 L Hgb 9.3 L D 9.0 L Hct 27.6 L 26.8 L MCV 86.8 MCH 29.2 MCHC 33.7 RDW Std Deviation 54.0 H RDW Coeff of Kellen 17.0 H Plt Count 149 MPV 10.3 Immature Gran % (Auto) 0.6 Neut % (Auto) 83.7 Lymph % (Auto) 10.4 [place] % (Auto) 4.1 Eos % (Auto) 0.8 Baso % (Auto) 0.4 Neut # (Auto) 9.49 H Lymph # (Auto) 1.18 L [place] # (Auto) 0.46 Eos # (Auto) 0.09 Baso # (Auto) 0.04 Immature Gran # (Auto) 0.07 Sodium Potassium Chloride Carbon Dioxide Anion Gap BUN Creatinine Est Cr Clr Drug Dosing Est GFR ( Amer) Est GFR (Non-Af Amer) BUN/Creatinine Ratio Glucose Calcium Total Bilirubin AST ALT Alkaline Phosphatase Total Protein Albumin Globulin Albumin/Globulin Ratio Urine Color [place] Urine Appearance Turbid A Urine pH 7.0 Ur Specific [place] 1.007 Urine Protein 2+ H Urine Glucose (UA) Negative Urine Ketones Negative Urine Blood 3+ H Urine Nitrite Negative Urine Bilirubin Negative Urine Urobilinogen Negative Ur Leukocyte Esterase Trace H Urine WBC (Auto) >30 H Urine RBC (Auto) >30 H U Hyaline Cast (Auto) 1-5 U Epithel Cells (Auto) 10-20 H Urine Bacteria (Auto) Negative Ur Renal Epithelial Cell Not Reportable Ur Random Creatinine U Random Total Protein Protein/Creatinin Ratio SARS-CoV-2, RNA, NAAT 04/15/23 07:05 WBC RBC Hgb Hct MCV MCH MCHC RDW Std Deviation RDW Coeff of Kellen Plt Count MPV Immature Gran % (Auto) Neut % (Auto) Lymph % (Auto) [place] % (Auto) Eos % (Auto) Baso % (Auto) Neut # (Auto) Lymph # (Auto) [place] # (Auto) Eos # (Auto) Baso # (Auto) Immature Gran # (Auto) Sodium Potassium Chloride Carbon Dioxide Anion Gap BUN Creatinine 0.39 L Est Cr Clr Drug Dosing 232.8 Est GFR ( Amer) > 150.0 Est GFR (Non-Af Amer) 141.9 BUN/Creatinine Ratio Glucose Calcium Total Bilirubin AST ALT Alkaline Phosphatase Total Protein Albumin Globulin Albumin/Globulin Ratio Urine Color Urine Appearance Urine pH Ur Specific [place] Urine Protein Urine Glucose (UA) Urine Ketones Urine Blood Urine Nitrite Urine Bilirubin Urine Urobilinogen Ur Leukocyte Esterase Urine WBC (Auto) Urine RBC (Auto) U Hyaline Cast (Auto) U Epithel Cells (Auto) Urine Bacteria (Auto) Ur Renal Epithelial Cell Ur Random Creatinine U Random Total Protein Protein/Creatinin Ratio SARS-CoV-2, RNA, NAAT
[2023-04-15] MEDS: SIMETHICONE 80 MG CHEW PO SCH (08:19)
[2023-04-15] MEDS: FERROUS SULFATE 325 MG TAB PO SCH (08:19)
[2023-04-15] MEDS: PRENATAL VITAMIN 1 TAB PO SCH (08:19)
[2023-04-15] MEDS: DOCUSATE SODIUM 100 MG CAP PO SCH (08:19)
[2023-04-15] MEDS: ENOXAPARIN INJ 40 MG/0.4 ML SYR SQ SCH (08:20)
--- NOTE | 2023-04-15 09:05 | Labor Progress Brief Note ---
Date of Service April 15, 2023 Assessment & Plan Admission and Anticipated Discharge Date Admission Date: April 10, 2023 Physical Exam Genitourinary: Manual OB Exam: + cervical dilation 10 cm, + cervical effacement 100%, + station + 2 and + amniotic fluid meconium OB Exam Monitor Tracing: + external FHT monitor used, + external uterine monitor used, + category II and + normal FHT variability patient continues to push. Adequate room by exam. option given to patient for now or continue to push. She is willing to push and re-evaluate in 30 minutes or so. Results & Data Vital Signs (Past 12 Hours) Vital Signs Temp Pulse Resp BP Pulse Ox O2 Del Method 04/15/23 07:15 36.8 C 96 H 16 131/85 Room Air 04/15/23 00:34 36.5 C 76 18 106/69 97 Room Air
[2023-04-15] MEDS ORDERED: bisacodyL 10 MG SUPP PR PRN (13:41)
== END 2023-04-15 10:56 | disposition home or self-care (01) | DRG 998 ==
LOC: 4S1 22:07 → 4E2 04-13 16:36